=== PATIENT | male | born 1955 | race American Indian/Alaskan Native ===

== ENCOUNTER 2017-05-19 04:06 | Emergency (ER) | payer BC ==
[~2017-05-19 04:06] MED LIST: ADRENALIN ONE; SODIUM BICARBONATE IV ONE
--- NOTE | 2017-05-19 04:23 | Emergency Department Report ---
ED CPR HPI - General Stated Complaint: CARDIAC ARREST Time Seen by Provider: 05/19/17 04:17 Source: EMS - History of Present Illness Initial Comments: Patient is a 61 years old male resided at [facility] , brought into the ER by EMS in a cardiac arrest, CPR in progress. Per retirement staff patient was seen around 03:15 this morning and 15 minutes later they went to check back on him and they found him unresponsive, CPR started and EMS was called at that time. EMS reports the patient was in asystole, and IO inserted patient already have a trach, Ambu bag started. The patient remained in asystole, ACLS protocol continued in the ER. Patient pupil is fixed and dilated, nonreactive. Patient pronounced at 4:15. Nurses trying to get in touch with the his family. Complaint: found unresponsive -: unknown Place: ID/SNF Bystander CPR Performed: Yes AED Applied by Bystander/Para Operator: Yes Shock Advised: No Initial Findings in the Field: no pulse, systole - Related Data Previous Rx's Medication Instructions Recorded Last Taken Type Carvedilol [Coreg] 3.125 mg PO BID #30 tablet 09/19/16 Unknown Rx Furosemide [Lasix] 20 mg PO QDAY #30 tablet 09/19/16 Unknown Rx Losartan [Cozaar] 50 mg PO QDAY #30 tablet 09/19/16 Unknown Rx Potassium Chloride [K-Dur] 20 meq PO QDAY #30 tablet 09/19/16 Unknown Rx glipiZIDE [Glucotrol] 5 mg PO QDAY #30 tablet 09/19/16 Unknown Rx hydrALAZINE [Apresoline TAB] 50 mg PO Q8HR #30 tablet 09/19/16 Unknown Rx Allergies Allergy/AdvReac Type Severity Reaction Status Date / Time Penicillins AdvReac Unknown Verified 09/16/16 10:15 ED Review of Systems ROS: Stated complaint: CARDIAC ARREST Other details as noted in HPI Comment: Unobtainable due to pts medical conditions ED Past Medical Hx - Past Medical History Hx Hypertension: Yes Hx Congestive Heart Failure: No Hx Diabetes: Yes Hx Seizures: Yes Hx Asthma: No Hx COPD: No - Social History Smoking Status: Former Smoker - Medications Home Medications: Home Medications Medication Instructions Recorded Confirmed Last Taken Type Carvedilol [Coreg] 3.125 mg PO BID #30 tablet 09/19/16 Unknown Rx Furosemide [Lasix] 20 mg PO QDAY #30 tablet 09/19/16 Unknown Rx Losartan [Cozaar] 50 mg PO QDAY #30 tablet 09/19/16 Unknown Rx Potassium Chloride [K-Dur] 20 meq PO QDAY #30 tablet 09/19/16 Unknown Rx glipiZIDE [Glucotrol] 5 mg PO QDAY #30 tablet 09/19/16 Unknown Rx hydrALAZINE [Apresoline TAB] 50 mg PO Q8HR #30 tablet 09/19/16 Unknown Rx ED Physical Exam - General General appearance: other (unresponsive) - Head Head exam: Present: atraumatic, normocephalic - Eye Eye exam: Present: other (pupils fixed and dilated, nonreactive) - ENT ENT exam: Present: mucous membranes dry - Neck Neck exam: Present: other (trach in place) - Respiratory Respiratory exam: Present: other (no spontaneous breathing) - Cardiovascular Cardiovascular Exam: Present: other (normal pulse, no heart tone) - GI/Abdominal GI/Abdominal exam: Present: soft, other (PEG tube in place) - Extremities Exam Extremities exam: Present: normal inspection Critical Care Time: Yes Critical care time in (mins) excluding proc time.: 20 Critical care attestation.: If time is entered above; I have spent that time in minutes in the direct care of this critically ill patient, excluding procedure time. ED Disposition Clinical Impression: Cardiac arrest Disposition: DC-20 Is pt being admited?: No Condition: Stable Referrals: PRIMARY CARE, [Primary Care Provider] - 3-5 Days
== END 2017-05-19 06:35 ==
LOC: ED 04:06
DX: I46.9 Cardiac arrest, cause unspecified (principal); E11.9 Type 2 diabetes mellitus without complications; R56.9 Unspecified convulsions; Z88.0 Allergy status to penicillin; F17.200 Nicotine dependence, unspecified, uncomplicated
CPT/HCPCS: 92950; 99285; J0171